=== PATIENT | male | born 1970 | race Caucasian/White ===

== ENCOUNTER 2017-03-04 07:52 | Emergency (ER) | payer OTHER ==
[2017-03-04 08:00] VITALS: BP 165/92; PULSE 103; RESP 16; TEMP 98.6; O2SAT 98
[2017-03-04] MEDS ORDERED: TDAP ADULT 0.5 ML INJ (BOOSTRIX) IM ONE (08:08)
--- NOTE | 2017-03-04 08:37 | EDPHY ---
H & P Time Seen by Provider: 03/04/17 08:36 HPI/ROS: CHIEF COMPLAINT: Right thumb laceration HISTORY OF PRESENT ILLNESS: Patient was using his pocket knife to a stick this space bar on his computer keyboard and put it back in his pocket closing on his right thumb. REVIEW OF SYSTEMS: No numbness or weakness distally and no foreign body. PAST MEDICAL HISTORY: Diabetes, hypertension, gout Social history: PCP in [place] General Appearance: Alert and conversant, cooperative. Patient has superficial 1 cm transverse laceration on the distal tip of the right thumb volar to the nail bed. Well approximated and no bleeding on my examination. Normal flexor and extensor tendon function and normal 2 point discrimination. Emergency Department course/MDM: Tetanus updated. Anesthetized with 0.5% bupivacaine without epinephrine, local wound care, Steri- Strips and dressing applied. Smoking Status: Never smoked Constitutional: Initial Vital Signs Temperature (C) 37.0 C 03/04/17 07:57 Heart Rate 103 H 03/04/17 07:57 Respiratory Rate 16 03/04/17 07:57 Blood Pressure 165/92 H 03/04/17 07:57 O2 Sat (%) 98 03/04/17 07:57 O2 Delivery Mode Room Air Allergies/Adverse Reactions: Penicillins Allergy (Verified 03/04/17 07:55) Home Medications: Medication Instructions Recorded Atenolol 03/04/17 GLIPIZIDE 03/04/17 Lisinopril 03/04/17 Metformin 1000 mg 03/04/17 MDM/Departure - MDM Medications Given: Discontinued Medications Diphtheria/Tetanus/Acell Pertussis (Boostrix) 0.5 ml IM .ONCE ONE Stop: 03/04/17 08:09 Last Admin: 03/04/17 08:13 Dose: 0.5 ml - Depart Disposition: Home, Routine, Self-Care Clinical Impression: Laceration of thumb, right Qualifiers: Encounter type: initial encounter Damage to nail status: without damage Foreign body presence: without foreign body Qualified Code(s): S61.011A - Laceration without foreign body of right thumb without damage to nail, initial encounter Condition: Good Instructions: Acute Wounds (ED) Referrals: Zarina Torres, [facility] INSTRUCTOR [Primary Care Provider] - As per Instructions
== END 2017-03-04 09:06 | disposition home or self-care (01) ==
DX: S61.011A Laceration without foreign body of right thumb without damage to nail, initial encounter (principal); W26.0XXA Contact with knife, initial encounter; E11.9 Type 2 diabetes mellitus without complications; I10 Essential (primary) hypertension; Z23 Encounter for immunization